=== PATIENT | male | born 1945 | race Two or more races ===

== ENCOUNTER → 2019-05-04 | Outpatient (CLI) | payer MEDICARE, OTHER ==
[~2019-05-04] MED LIST: CALCIUM 600 +1 EAC8 PO; ECOTRIN81 MG PO; FISH OIL PO; IOPAMIDOL 370 MG/ML 200 ML INFUS..BTL INJ ONE; LISINOPRIL-HCT1 EACH PO; METFORMIN HCL1000 M1 PO; SIMVASTATIN20 MG PO; SODIUM CHLORIDE 0.9% 500ML 500 ML ONE; SODIUM CHLORIDE 0.9% 50ML 50 ML ONE; VICTOZA 3-0.6 MG/0.1 SQ; VITAMIN E PO
--- NOTE | 2019-05-04 20:11 | Diagnostic Imaging Report ---
EXAMINATION: Head CT with and without contrast. HISTORY:History of stroke. COMPARISON:None. TECHNIQUE: Multidetector axial images were obtained from the foramen magnum to the vertex without contrast. The images were reconstructed using brain and bone algorithms. Thin section brain images were reformatted into coronal and sagittal planes. Dose modulation, iterative reconstruction, and/or weight based adjustment of the mA/kV was utilized to reduce the radiation dose to as low as reasonably achievable. Intravenous contrast: 100 mL of Isovue-370. IMAGE QUALITY: Acceptable. FINDINGS: Skull/scalp: Expected postoperative changes from prior right frontal temporal parietal craniotomy/partial craniectomy status post cranioplasty. No lytic or blastic calvarial lesions. Right frontal reyna hole for ventricular catheter placement. Parenchyma: Large area of cortical-based hypodensity in the inferior and posterior aspect of right temporal lobe and right occipital lobe represents chronic encephalomalacia related to prior vascular insult in right [employer] vascular territory. Cortical-based hypodensity in right precentral gyrus and superior parietal lobe represents age indeterminate vascular insult in right MCA vascular territory. Nonspecific bilateral frontoparietal patchy white matter hypodensity are likely related to small vessel ischemic changes. Metallic surgical clip in the lateral aspect of the right ambient cistern in the posterior aspect of right temporal lobe. Suboptimal evaluation at this level due to metallic streak artifacts. No acute hemorrhage. No abnormal parenchymal enhancement. Arteries: No density suggestive of thrombosis. Mild atherosclerotic calcification in bilateral carotid siphon. Dural sinuses: No abnormal density suggestive of thrombosis. Ventricles: Marked ventriculomegaly particularly involving bilateral lateral ventricles and third ventricle sparing the fourth ventricle. Right frontal approach ventricular catheter with its tip in the frontal horn of right lateral ventricle, in close proximity to the fornix. Exvacuodilatation of atrium, posterior body, occipital and temporal horn of right lateral ventricle. Extra-axial spaces: Thin dural enhancement particularly in the right parietotemporal region beneath the cranioplasty and craniotomy, expected postoperative change. Brain volume: Normal for age. Craniocervical junction: No mass, Chiari malformation, or basilar invagination. Sella: No mass. Paranasal/mastoid sinuses: Partial opacification of right mastoid air cells. IMPRESSION: 1. Age indeterminate vascular insult in right parietal lobe, precentral gyrus in right MCA vascular territory. 2. Chronic encephalomalacia in right posterior temporal and occipital lobe, represents prior vascular insult in right [employer] vascular territory. 3. Marked supratentorial ventriculomegaly particularly involving the lateral and third ventricle, status post right frontal approach ventricular catheter, raises concern for catheter malfunction. Comparison with prior studies if made available will be helpful. 4. Expected postoperative changes from prior right frontal temporal parietal craniotomy, partial craniectomy and cranioplasty. Signed by: Dr. Ximena Vargas M.D. on 05/04/2019 8:07 PM
== END ==
LOC: CT 16:13
PROVIDERS: ATTEND Internal Medicine
DX: I63.311 Cerebral infarction due to thrombosis of right middle cerebral artery (principal); G40.909 Epilepsy, unspecified, not intractable, without status epilepticus
CPT/HCPCS: 70470; 96360; J7040; Q9967